=== PATIENT | male | born 1995 | race Caucasian/White ===

== ENCOUNTER 2018-08-27 01:19 | Emergency (ER) | payer OTHER ==
[~2018-08-27] VITALS: Ht 185.4 cm; Wt 74.8 kg
[~2018-08-27 01:19] MED LIST: AUGMENTIN 875875 MG PO; CONCERTA ER 1818 MG PO; HYDROCODONE-AP1 EAC6 PO; IBUPROFEN 800800 M1 PO; IBUPROFEN 800800 MG PO; RISPERDAL0.5 MG PO; VENTOLIN HFA 1818 GM INH
[2018-08-27 01:24] VITALS: BP 128/64
== END 2018-08-27 01:51 | disposition home or self-care (01) ==
LOC: M.ERS 01:19
DX: S00.81XA Abrasion of other part of head, initial encounter (principal); R11.0 Nausea; J45.909 Unspecified asthma, uncomplicated; F90.9 Attention-deficit hyperactivity disorder, unspecified type; F17.210 Nicotine dependence, cigarettes, uncomplicated; W18.39XA Other fall on same level, initial encounter; Y93.89 Activity, other specified; Y92.89 Other specified places as the place of occurrence of the external cause; Y99.8 Other external cause status; S00.01XA Abrasion of scalp, initial encounter

== ENCOUNTER 2018-09-08 20:00 | Emergency (ER) | payer OTHER ==
[~2018-09-08] VITALS: Ht 185.4 cm; Wt 68.0 kg
[2018-09-08] MEDS ORDERED: MEDROLDOSEPACK PO (20:52)
[2018-09-08] MEDS ORDERED: PROAIR HFA8.5 GM INH (20:52)
[2018-09-08] MEDS ORDERED: ZPAK PO (20:52)
[2018-09-08] MEDS ORDERED: ACETAMINOPHEN-1 EAC1 PO (20:52)
[2018-09-08 21:15] VITALS: BP 119/78
== END 2018-09-08 21:16 | disposition home or self-care (01) ==
LOC: M.ERS 20:00
DX: J20.9 Acute bronchitis, unspecified (principal); J45.909 Unspecified asthma, uncomplicated; F90.9 Attention-deficit hyperactivity disorder, unspecified type

== ENCOUNTER 2018-10-24 20:03 | Emergency (ER) | payer OTHER ==
[~2018-10-24] VITALS: Ht 185.4 cm; Wt 72.6 kg
[~2018-10-24 20:03] MED LIST changes: +ACETAMINOPHEN-1 EAC1 PO; +MEDROLDOSEPACK PO; +PROAIR HFA8.5 GM INH; +ZPAK PO
[2018-10-24 20:13] VITALS: BP 128/77
== END 2018-10-24 20:59 | disposition home or self-care (01) ==
LOC: M.ERS 20:03
DX: J40 Bronchitis, not specified as acute or chronic (principal); F90.9 Attention-deficit hyperactivity disorder, unspecified type